=== PATIENT | male | born 1985 | race Caucasian/White ===

== ENCOUNTER → 2020-08-14 14:01 | Outpatient (REF) | payer OTHER, SELFPAY | LOC: HO.SL 14:01 | PROVIDERS: PCP Internal Medicine Geriatric Medicine; Visit Provider Internal Medicine Geriatric Medicine | DX: R06.81 Apnea, not elsewhere classified (principal); R06.83 Snoring; E66.9 Obesity, unspecified | CPT/HCPCS: 95806 ==

== ENCOUNTER 2020-09-17 15:16 | Outpatient (REF) | payer OTHER, SELFPAY | END 2020-09-17 15:17 | disposition home or self-care (01) | LOC: HO.LAB 15:16 | PROVIDERS: PCP Internal Medicine Geriatric Medicine; Visit Provider Internal Medicine | DX: Z20.828 Contact with and (suspected) exposure to other viral communicable diseases (principal) | CPT/HCPCS: C9803; U0003 ==

== ENCOUNTER 2021-04-23 12:20 | Outpatient (REF) | payer MEDICAID, OTHER, SELFPAY ==
--- NOTE | ~2021-04-23 | XR_ITS ---
EXAMINATION: XR CHEST CLINICAL INFORMATION: Dry and productive cough COMPARISON: None TECHNIQUE: 2 views of the chest were obtained. FINDINGS: There is no evidence of acute parenchymal disease, pneumothorax, or pleural effusion. Heart normal size. No evidence of pulmonary edema. XR/XR chest 2V IMPRESSION: No acute disease.
== END 2021-04-23 12:21 | disposition home or self-care (01) ==
LOC: HO.XRAY 12:20
PROVIDERS: PCP Internal Medicine Geriatric Medicine; Visit Provider Nurse Practitioner Family
DX: R05 Cough (principal)
CPT/HCPCS: 71046

== ENCOUNTER 2024-01-06 09:18 | Outpatient (REF) | payer MEDICAID, OTHER, SELFPAY ==
[2024-01-06 12:20] LABS: Alanine Aminotransferase 36 U/L (0-40); Albumin Level 4.2 g/dL (3.5-5.0); Alkaline Phosphatase 104 U/L (39-117); Anion Gap 12 (12-20); Aspartate Amino Transferase 19 U/L (5-37); Bilirubin Total 0.7 mg/dL (0.0-1.0); Blood Urea Nitrogen 11 mg/dL (9-16); Calcium 9.5 mg/dL (8.4-10.2); Carbon Dioxide 25 mmol/L (22-29); Chloride 106 mmol/L (96-108); Cholesterol 240 mg/dL (<200); Estimated Glomerular Filt Rate > 60; Glucose Random 84 mg/dL (60-115); HDL Cholesterol 57 mg/dL (>40); LDL Cholesterol Calculated 157 mg/dL (<100); Potassium 4.1 mmol/L (3.3-5.1); Sodium 139 mmol/L (135-145); Total Protein 7.8 g/dL (6.5-8.0); Triglycerides 130 mg/dL (<150)
== END 2024-01-06 09:19 | disposition home or self-care (01) ==
LOC: HO.HHCL 09:18
PROVIDERS: Visit Provider Internal Medicine Geriatric Medicine
DX: E66.9 Obesity, unspecified (principal)
CPT/HCPCS: 36415; 80053; 80061

== ENCOUNTER 2024-05-19 08:55 | Outpatient (REF) | payer MEDICAID, OTHER, SELFPAY | END 2024-05-19 08:56 | disposition home or self-care (01) | LOC: HO.HHCL 08:55 | PROVIDERS: Visit Provider Internal Medicine Geriatric Medicine | DX: E78.00 Pure hypercholesterolemia, unspecified (principal); E66.9 Obesity, unspecified | CPT/HCPCS: 36415; 80053; 80061 ==

== ENCOUNTER 2024-08-07 13:14 | Outpatient (REF) | payer MEDICAID, OTHER, SELFPAY ==
--- NOTE | ~2024-08-07 | XR_ITS ---
EXAMINATION: X-ray bilateral knees CLINICAL INFORMATION: Bilateral knee pain COMPARISON: None TECHNIQUE: Left knee 4 views. Right knee 4 views. FINDINGS: Left knee: Alignment is anatomic. Joint space is maintained. No visible acute fracture or dislocation. No effusion. No abnormal soft tissue calcification. Right knee: Alignment is anatomic. Joint spaces are maintained. No visible acute fracture or dislocation. No effusion. No abnormal soft tissue calcification. XR/XR knee RT 4V IMPRESSION: No radiographic evidence of acute osseous abnormality. Electronically signed by: Manohar Harp MD 08/07/2024 05:02 PM EDT RP
--- NOTE | ~2024-08-07 | XR_ITS ---
EXAMINATION: X-ray bilateral knees CLINICAL INFORMATION: Bilateral knee pain COMPARISON: None TECHNIQUE: Left knee 4 views. Right knee 4 views. FINDINGS: Left knee: Alignment is anatomic. Joint space is maintained. No visible acute fracture or dislocation. No effusion. No abnormal soft tissue calcification. Right knee: Alignment is anatomic. Joint spaces are maintained. No visible acute fracture or dislocation. No effusion. No abnormal soft tissue calcification. XR/XR knee LT 4V IMPRESSION: No radiographic evidence of acute osseous abnormality. Electronically signed by: Manohar Harp MD 08/07/2024 05:02 PM EDT
[2024-08-07 17:04] LABS: Alanine Aminotransferase 43 U/L (0-40); Albumin Level 4.3 g/dL (3.5-5.0); Alkaline Phosphatase 93 U/L (39-117); Anion Gap 11 (12-20); Aspartate Amino Transferase 27 U/L (5-37); Bilirubin Total 0.5 mg/dL (0.0-1.0); Blood Urea Nitrogen 12 mg/dL (9-16); Calcium 9.5 mg/dL (8.4-10.2); Carbon Dioxide 26 mmol/L (22-29); Chloride 106 mmol/L (96-108); Cholesterol 243 mg/dL (<200); Estimated Glomerular Filt Rate > 60; Glucose Fasting 84 mg/dL (60-99); HDL Cholesterol 56 mg/dL (>40); LDL Cholesterol Calculated 155 mg/dL (<100); Potassium 3.8 mmol/L (3.3-5.1); Sodium 139 mmol/L (135-145); Total Protein 7.6 g/dL (6.5-8.0); Triglycerides 163 mg/dL (<150)
== END 2024-08-07 13:15 | disposition home or self-care (01) ==
LOC: HO.HHCL 13:14
PROVIDERS: Visit Provider Internal Medicine Geriatric Medicine
DX: G89.29 Other chronic pain (principal); M25.562 Pain in left knee; M25.561 Pain in right knee; E66.9 Obesity, unspecified; E78.00 Pure hypercholesterolemia, unspecified
CPT/HCPCS: 36415; 73564; 80053; 80061

== ENCOUNTER 2025-01-09 08:41 | Outpatient (REF) | payer OTHER, SELFPAY ==
--- OUTSIDE RECORDS SUMMARY | 2025-01-09 09:16 | XMS_ITS | Encounter Summary ---
Author Organization [employer] Address [address] [facility] 7 [place] [address] Care Team Providers Care Manufacturing Intern Name Role Phone Name, Jermaien JANE Primary Care Provider [phone] Reason for Visit * Reason Onset Date Comments Appointment Request 07/21/2024 Encounter Details Date Type Department Care Team ([facility] st Contact Info) Description 07/21/2024 Telephone [facility] [address] [place] [address] Name, MD Jermaine [address] [place] [address] Appointment Request Social History Tobacco Use Types Packs/Day Years Used Date Smoking Tobacco: Former Cigarettes Q uit: 2019 Smokeless Tobacco: Never Alcohol Use Standard Drinks/Week Comments Yes 12 (1 standard drink = 0.6 oz pu re alcohol) Depression Answer Date Recorded Patient Health Questionnaire-9 Score 0 01/10/2024 Patient Health Questionnaire-9 Score 0 01/10/2024 Last PHQ-9: Questionnaire Data Not on file 0 01/10/2024 Housing Stability Answer Date Recorded What is your housing situation today? I have karen mccabe 01/10/[address] you li ve. Do you have problems with any of the following? None of the above 01/10/2024 Food Insecurity Answer Date Recorded Within the past 12 months, y ou worried that your food would run out before you got money to buy more: Never True 01/10/2024 Within the past 12 months,th e food you bought just didn't last and you didn't have enough money to get more: Never True Transportation Answer Date Recorded In the past 12 months, has l ack of transportation kept you from medical appts, meetings, work or from getting things needed for daily living? No 01/10/2024 Utilities Answer Date Recorded In the past 12 months, has t he electric, gas, oil or water company threatened to shut off services in your home? No 01/10/2024 Depression Answer Date Recorded Patient Health Questionnaire-2 Score 0 01/10/2024 Sex and Gender Information Value Date Recorded Sex Assigned at Male 08/17/2022 10:30 AM EDT Legal Sex Male 10:30 AM EDT Gender Identity Male 08/17/2022 10:30 AM EDT Sexual Orientation Choose not to disclose 2021 10:30 AM EDT documented as of this encounter Miscellaneous Notes * Telephone Encounter - Costa Ling - 07/21/2024 2:17 PM EDT Tc from patient calling to cancel the appt for 07/21 and and would like a call back to reschedule documented in this encounter Plan of Treatment Upcoming Encounters Date Type Department Care Team (Late st Contact Info) Description 03/13/2025 3:30 PM EDT Office Visit [facility] [address] [place] [id number] Name, MD Jermaine [address] [place] [address] documented as of this encounter Visit Diagnoses Not on filedocumented in this encounter Additional Health Concerns Assessment Noted Time PHQ-9 Depression Total Score: 0 01/10/20 24 3:59 PM EDT documented as of this encounter Care Teams Manufacturing Intern Relationship Specialty Start Date End Date Name, MD Jermaine [address] [place] [id number] PCP - General Family Medicine 10/18/18 documented as of this encounter
--- OUTSIDE RECORDS SUMMARY | 2025-01-09 09:16 | XMS_ITS | Clinical Summary ---
Author Organization [facility] ity Address [address] [place] [address] Care Team Providers Care Peanut Butter Maker Name Role Phone Unavailable Primary Care Provider Unavailabl e Social History Tobacco Use Types Packs/Day Years Used Date Smoking Tobacco: Never Assessed Sex and Gender Information Value Date Recorded Sex Assigned at Not on file Legal Sex Male 2:03 PM EST Gender Identity Not on file Sexual Orientation Not on file Plan of Treatment Health Maintenance Due Date Last Done Comments DTaP,Tdap,and Td Vaccines (1 - Tdap) 2005 Hepatitis B Vaccines (1 of 3 - 19+ 3-dose series) 2005 COVID-19 Vaccine (2023-2 5 season) 2024 Influenza Vaccine (#1) 2024 HIB Vaccines Aged Out No longer eligi ble based on patient's age to complete this topic HPV Vaccines Aged Out No longer eligi ble based on patient's age to complete this topic Hepatitis A Vaccines Aged Out No long er eligible based on patient's age to complete this topic IPV Vaccines Aged Out No longer eligi ble based on patient's age to complete this topic MMR Vaccines Aged Out No longer eligi ble based on patient's age to complete this topic Meningococcal ACWY Vaccine Aged Out N o longer eligible based on patient's age to complete this topic Meningococcal B Vacine Aged Out No lo nger eligible based on patient's age to complete this topic Pneumococcal Vaccine: Pediat rics (0 to 5 Years) and At-Risk Patients (6 to 64 Years) Aged Out No longer eligible b ased on patient's age to complete this topic RSV Immunization Patients Un soniya 20 months Aged Out No longer eligible b ased on patient's age to complete this topic Varicella Vaccines Aged Out No longer eligible based on patient's age to complete this topic
--- OUTSIDE RECORDS SUMMARY | 2025-01-09 09:16 | XMS_ITS | Encounter Summary ---
Author Organization [employer] Address [address] [place] [address] 7 [place] [address] Care Team Providers Care Gravity Prospecting Operator Name Role Phone Name, Jermaine JANE Primary Care Provider [phone] Reason for Visit * Reason Comments Bilateral Ear Irrigation Encounter Details Date Type Department Care Team (Latest Contact Info) Description 12/18/2024 3:30 PM EST Clinical Support [facility] [address] [place] [address] Bela Mesa RN Impacted cerumen of both ears Social History Tobacco Use Types Packs/Day Years [...] AM EDT documented as of this encounter Progress Notes * Bela Mesa RN - 12/18/2024 3:30 PM ESTAssociated Order(s): Ear Cerumen Removal Post-Procedure Diagnose(s): Impacted cerumen of both ears Patient ID: Keyanna Cornell is a 39 y.o. male. Ear Cerumen Removal Date/Time: 12/18/2024 3:30 PM Performed by: Bela Mesa RN Authorized by: Jermaine Marie MD Consent: Consent obtained: Verbal Consent given by: Patient Risks, benefits, and alternatives were discussed: yes Risks discussed: Bleeding, dizziness and incomplete removal Alternatives discussed: No treatment [place] protocol: Patient identity confirmed: Verbally with patient Procedure details: Location: L ear and R ear Procedure type: irrigation Procedure outcomes: cerumen removed Post-procedure details: Inspection: No bleeding and ear canal clear Hearing quality: Improved Procedure completion: Tolerated documented in this encounter Plan of Treatment Upcoming Encounters Date Type Department Care Team (Late st Contact Info) Description 03/13/2025 3:30 PM EDT Office Visit [facility] [address] [place] [address] Name, MD Jermaine [address] [place] [address] documented as of this encounter Procedures Procedure Name Priority Date/Time Associated Diagnosis Comments MT REMOVAL IMPACTED CERUMEN IRRIGATION/LVG UNILAT Routine 12/18/2024 3:30 PM EST Impacted cerumen of both ears documented in this encounter Results * MT REMOVAL IMPACTED CERUMEN IRRIGATION/LVG UNILAT (12/18/2024 3:30 PM EST) Bela Sanders RN - 12/18/2024 3:30 PM EST Bela Mesa RN ? 12/18/2024 ??3:39 PM Ear Cerumen Removal Date/Time: 12/18/2024 3:30 PM Performed by: Bela Mesa RN Authorized by: Jermaine Marie MD ?? Consent: ??Consent obtained: ??Verbal ??Consent given by: ??Patient ??Risks, benefits, and alternatives were discussed: yes ?Risks discussed: ??Bleeding, dizziness and incomplete removal ??Alternatives discussed: ??No treatment [place] protocol: ??Patient identity confirmed: ??Verbally with patient Procedure details: ??Location: ??L ear and R ear ??Procedure type: irrigation ?Procedure outcomes: cerumen removed ?? Post-procedure details: ??Inspection: ??No bleeding and ear canal clear ??Hearing quality: ??Improved ??Procedure completion: ??Tolerated us Jermaine Marie MD IN CLINIC/BEDSIDE ORDERABLES Fin al Result documented in this encounter Visit Diagnoses Diagnosis Impacted cerumen of both ears Impacted cerumen documented in this encounter Additional Health Concerns Assessment Noted Time PHQ-9 Depression Total Score: 0 01/10/20 24 3:59 PM EDT documented as of this encounter Care Teams Gravity Prospecting Operator Relationship Specialty Start Date End Date Name, MD Jermaine [address] [place] [address] PCP - General Family Medicine 10/18/18 documented as of this encounter
--- OUTSIDE RECORDS SUMMARY | 2025-01-09 09:16 | XMS_ITS | Encounter Summary ---
Author Organization [employer] [facility] Address [address] [place] [address] 7 [place] [address] Care Team Providers Care Sod Stripper Name Role Phone Name, Jermaine JANE Primary Care Provider Encounter Details Date Type Department Care Team (Latest Contact Info) Description 10/26/2019 Abstract [facility] Dental, Provider, DDS Social History Tobacco Use Types Packs/Day Years Used Date Smoking Tobacco: Never Assessed Sex and Gender Information Value Date Recorded Sex Assigned at Male 08/17/2022 10:30 AM EDT Legal Sex Male 10:30 AM EDT Gender Identity Male 08/17/2022 10:30 AM EDT Sexual Orientation Choose not to disclose 2021 10:30 AM EDT documented as of this encounter Plan of Treatment Upcoming Encounters Date Type Department Care Team (Late st Contact Info) Description 03/13/2025 3:30 PM EDT Office Visit [facility] [address] [place] [address] NameJermaine MD [address] [place] [address] documented as of this encounter Visit Diagnoses Not on filedocumented in this encounter Care Teams Sod Stripper Relationship Specialty Start Date End Date Jermaine Marie MD [address] [place] [address] PCP - General Family Medicine 10/18/18 documented as of this encounter
--- OUTSIDE RECORDS SUMMARY | 2025-01-09 09:16 | XMS_ITS | Encounter Summary ---
Author Organization [employer] Address [address] [place] [address] 7 [place] [address] Care Team Providers Care Bearing Machine Operator Name Role Phone Name, Jermaine JANE Primary Care Provider [phone] Reason for Visit * Reason Comments Follow-up Encounter Details Date Type Department Care Team ([facility] st Contact Info) Description 12/11/2024 3:30 PM EST Office Visit [facility] [address] [place] [address] Name, MD Jermaine [address] [place] [address] High cholesterol (Primary Dx); Impacted cerumen, unspecified laterality Social History Tobacco Use Types Packs/Day Years Used Date Smoking Tobacco: Former Cigarettes Q uit: 2019 Smokeless Tobacco: Never Tobacco Cessation:Counseling Given: Not Answered Alcohol Use Standard Drinks/Week Comments Yes 12 [...] AM EDT documented as of this encounter Last Filed Vital Signs Vital Sign Reading Time Taken Comments Blood Pressure 128/78 12/11/2024 3:53 PM EST Pulse 98 12/11/2024 3:39 PM EST Temperature 37.2 ??C (98.9 ??F) 12/11/2024 3:39 PM ES T Respiratory Rate 21 12/11/2024 3:39 PM EST Oxygen Saturation 99% 12/11/2024 3:39 PM EST Inhaled Oxygen Concentration - - Weight 92.2 kg (203 lb 3.2 oz) 12/11/2024 3:39 PM EST Height - - Body Mass Index 32.8 08/04/2024 3:55 PM EDT documented in this encounter Progress Notes * Jermaine Marie, - 12/11/2024 3:30 PM EST Subjective Patient ID: Keyanna Cornell is a 39 y.o. male who presents for Follow-up. Patient comes for a follow-up visit. She tells me that he has improved his diet, he is eating more salads, drinking less alcohol. He is interested in rechecking his lipid levels. Today he also complains of bilateral decreased hearing. Ear discomfort. Symptoms have been present for several months. He denies use of Q-tips at home. No fevers or chills. No ear discharge. No vertigo. Review of Systems Constitutional: Negative for chills, fatigue and fever. HENT: Negative for sore throat. See HPI Respiratory: Negative for cough, chest tightness and shortness of breath. Cardiovascular: Negative for chest pain, palpitations and leg swelling. Gastrointestinal: Negative for abdominal pain and blood in stool. Visit Vitals BP 128/78 Pulse 98 Temp 98.9 ??F (37.2 ??C) (Temporal) Resp 21 Wt 203 lb 3.2 oz (92.2 kg) SpO2 99% BMI 32.80 kg/m?? Smoking Status Former BSA 2.07 m?? Objective Physical Exam Constitutional: Appearance: Normal appearance. HENT: Ears: Comments: He has bilateral cerumen impaction on exam Cardiovascular: Rate and Rhythm: Normal rate and regular rhythm. Heart sounds: No murmur heard. Pulmonary: Effort: Pulmonary effort is normal. No respiratory distress. Breath sounds: No wheezing, rhonchi or rales. Abdominal: Palpations: Abdomen is soft. Tenderness: There is no abdominal tenderness. Musculoskeletal: Right lower leg: No edema. Left lower leg: No edema. Neurological: Mental Status: He is alert. Assessment/Plan Diagnoses and all orders for this visit: High cholesterol Comments: He is congratulated on his recent dietary changes. He will come for fasting blood work listed below. He is encouraged to continue to avoid junk food, continue to eat more salads, decrease alcohol consumption, regular physical activity. Orders: - Lipid Panel, Standard; Future Impacted cerumen, unspecified laterality Comments: I prescribed the patient Debrox. I recommended to avoid using Q-tips. I recommend to use Debrox daily and come next week for ear lavage. Other orders - carbamide peroxide (Debrox) 6.5 % otic solution; Administer 5-10 drops into affected ear(s) 2 times daily for 4 days. documented in this encounter Plan of Treatment Upcoming Encounters Date Type Department Care Team (Late st Contact Info) Description 03/13/2025 3:30 PM EDT Office Visit [facility] [address] [place] [address] Jermaine Marie MD [address] [place] [address] Scheduled Orders Name Type Priority Associated Diagnoses Orde r Schedule Lipid Panel, Standard Lab Routine High cholesterol Expected: 12/11/2024 (Approximate), Expires: 12/11/2025 documented as of this encounter Visit Diagnoses Diagnosis High cholesterol- Primary Pure hypercholesterolemia Impacted cerumen, unspecified laterality documented in this encounter Additional Health Concerns Assessment Noted Time PHQ-9 Depression Total Score: 0 01/10/20 24 3:59 PM EDT documented as of this encounter Care Teams Bearing Machine Operator Relationship Specialty Start Date End Date Name, MD Jermaine [address] [place] [address] PCP - General Family Medicine 10/18/18 documented as of this encounter
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
[2025-01-09 12:22] LABS: Cholesterol 200 mg/dL (<200); HDL Cholesterol 51 mg/dL (>40); LDL Cholesterol Calculated 122 mg/dL (<100); Triglycerides 136 mg/dL (<150)
== END 2025-01-09 08:42 | disposition home or self-care (01) ==
LOC: HO.HHCL 08:41
PROVIDERS: Visit Provider Internal Medicine Geriatric Medicine
DX: E78.00 Pure hypercholesterolemia, unspecified (principal)
CPT/HCPCS: 36415; 80061

== ENCOUNTER 2025-01-19 16:28 | Outpatient (REF) | payer OTHER, SELFPAY ==
--- NOTE | ~2025-01-19 | XR_ITS ---
EXAMINATION: XR CHEST 2 VIEWS HISTORY: pain COMPARISON: Comparison is made with the prior examination dated 04/23/2021. FINDINGS: PA and lateral views of the chest are submitted. The lungs are expanded and clear. There is no pleural effusion, pneumothorax, or pulmonary vascular congestion. The heart is normal in size. The bones are intact. XR/XR chest 2V IMPRESSION: No acute cardiopulmonary abnormality. Electronically signed by: Alex Ashford MD 01/22/2025 06:59 AM EDT
--- OUTSIDE RECORDS SUMMARY | 2025-01-19 17:04 | XMS_ITS | Clinical Summary ---
Author Organization [facility] ity Address [address] [place] [address] Care Team Providers Care Handle Finisher Name Role Phone Unavailable Primary Care Provider [...] Vaccine (2023-2 5 season) 2024 Influenza Vaccine (Season Ended) 2025 HIB Vaccines Aged Out No longer eligi [...]
--- OUTSIDE RECORDS SUMMARY | 2025-01-19 17:04 | XMS_ITS | Encounter Summary ---
Author Organization [facility] Address [address] [place] [address] 7 [place] [address] Care Team Providers Care Awning Craftsperson Name Role Phone Name, Jermaine JANE Primary Care Provider [phone] Encounter Details Date Type Department Care Team (Latest Contact Info) Description 10/26/2019 Abstract [facility] CONVERSIONS Dental, Provider, DDS Social History Tobacco [...] Description 03/13/2025 3:30 PM EDT Office Visit [facility] MEDICINE [address] [place] [address] NameJermaine MD [address] [place] [address] documented as of this encounter Visit Diagnoses Not on filedocumented in this encounter Care Teams Awning Craftsperson Relationship Specialty Start Date End Date Jermaine Marie MD [address] [place] [address] PCP - General Family Medicine 10/18/18 documented as of this encounter
--- OUTSIDE RECORDS SUMMARY | 2025-01-19 17:04 | XMS_ITS | Encounter Summary ---
Author Organization [employer] Address [address] [facility] 7t [place] [address] Care Team Providers Care Director Transition Name Role Phone Name, Jermaine JANE Primary Care Provider [phone] Reason for Visit * Reason Comments Chest Pain Shortness of Breath Encounter Details Date Type Department Care Team ([facility] st Contact Info) Description 01/19/2025 4:00 PM EDT Office Visit [facility] [address] [address] Pleurodynia (Primary Dx); Dietary counseling; Exercise counseling; Class 1 obesity without serious comorbidity with body mass index (BMI) of 32.0 to 32.9 in adult, unspecified obesity type; Acute bilateral low back pain with right-sided sciatica Social History Tobacco Use Types Packs/Day Years [...] Sign Reading Time Taken Comments Blood Pressure 122/64 01/19/2025 4:10 PM EDT Pulse 80 01/19/2025 4:10 PM EDT Temperature 37.2 ??C (99 ??F) 01/19/2025 4:10 PM EDT Respiratory Rate 20 01/19/2025 4:10 PM EDT Oxygen Saturation 99% 01/19/2025 4:10 PM EDT Inhaled Oxygen Concentration - - Weight 90.4 kg (199 lb 3.2 oz) 01/19/2025 4:10 P M EDT Height 175.3 cm (5' 9 ) 01/19/2025 4:10 PM EDT Body Mass Index 29.42 01/19/2025 4:10 PM EDT documented in this encounter Plan of Treatment Upcoming Encounters Date Type Department Care Team (Late st Contact Info) Description 03/13/2025 3:30 PM EDT Office Visit [facility] [address] [facility] [place] [address] Name, MD Jermaine [address] [place] [address] Pending Results Name Type Priority Associated Diagnoses Date /Time ECG 12 lead ECG Routine Pleurodynia 01/19/2025 4:35 PM EDT Scheduled Orders Name Type Priority Associated Diagnoses Orde r Schedule XR Chest 2 Views Imaging Routine Pleurodynia Expected: 01/19/2025, Expires: 01/19/2026 D-Dimer, Quantitative Lab STAT Pleurodynia Expected: 01/19/2025 (Approximate), Expires: 01/19/2026 High Sensitivity Troponin I Lab STAT Pleurodynia Expected: 01/19/2025, Expires: 01/19/2026 Comprehensive Metabolic Panel Lab STAT Pleurodynia Expected: 01/19/2025 (Approximate), Expires: 01/19/2026 documented as of this encounter Visit Diagnoses Diagnosis Pleurodynia- Primary Painful respiration Dietary counseling Dietary surveillance and counseling Exercise counseling Class 1 obesity without serious comorbidity with body mass index (BMI) of 32.0 to 32.9 in adult, unspecified obesity type Acute bilateral low back pain with right-sided sciatica documented in this encounter Additional Health Concerns Assessment Noted Time PHQ-9 Depression Total Score: 0 01/10/20 24 3:59 PM EDT documented as of this encounter Care Teams Director Transition Relationship Specialty Start Date End Date Name, MD Jermaine [address] [place] [address] PCP - General Family Medicine 10/18/18 documented as of this encounter
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
--- OUTSIDE RECORDS SUMMARY | 2025-01-19 17:04 | XMS_ITS | Encounter Summary ---
Author Organization [employer] Address [address] [facility] 7 [place] [address] Care Team Providers Care Traffic Analysis Technician Name Role Phone Name, Jermaine JANE Primary Care Provider [phone] Reason for Visit * Reason Onset Date Comments Appointment Request 07/21/2024 Encounter Details Date Type Department Care Team ([facility] st Contact Info) Description 07/21/2024 Telephone [facility] [address] [place] [address] Name, MD Jermaine [address] [place] [address] Appointment Request Social History Tobacco Use Types [...] Description 03/13/2025 3:30 PM EDT Office Visit [facility] [address] [place] [phone] Name, MD Jermaine [address] [place] [address] documented as of this encounter Visit Diagnoses Not on filedocumented in this encounter Additional Health Concerns Assessment Noted Time PHQ-9 Depression Total Score: 0 01/10/20 24 3:59 PM EDT documented as of this encounter Care Teams Traffic Analysis Technician Relationship Specialty Start Date End Date Name, MD Jermaine [address] [place] [address] PCP - General Family Medicine 10/18/18 documented as of this encounter
--- OUTSIDE RECORDS SUMMARY | 2025-01-19 17:04 | XMS_ITS | Encounter Summary ---
Author Organization [employer] Address [address] [facility] 7t [place] [address] Care Team Providers Care Business Economist Name Role Phone Name, Jermaine JANE Primary Care Provider [phone] Reason for Visit * Reason Onset Date Comments [facility] triage 01/19/2025 Encounter Details Date Type Department Care Team ([facility] st Contact Info) Description 01/19/2025 Telephone [facility] [address] [place] [phone] [facility] triage Social History Tobacco Use Types Packs/Day Years [...] encounter Miscellaneous Notes * Telephone Encounter - Norma Syed RN - 01/19/2025 4:17 PM EDT Pt presents to [facility] today with reports of chest pain. Pt is with his daughter Chayo @ [phone]. Daughter will provide Estonian translation. Pt taken for triage in room C. VSS: Weight: 199.2 BP, right arm adult cuff 122/64 Temp PO 99 R/A sat 99% HR reg 86 RR 20, non labored EKG done Pt describes chest pain as: starting at 4 AM today, on/off. No other s/s. Pain is associated strictly with movement, and hard to take a deep breath . Pt works at [employer]. He denies any recent chest injuries or cold symptoms. LS clear. Pt is pain free at this time, except for sitting up or turning toward left side on exam table. EKG and report given to provider. Pt quit smoking about 7 years ago, uses etoh minimally, has 1-2 cups coffee a day, denies other substance uses. Pt sees Dr Marie for PCP, has had elevated cholestrol panel. Pt in NAD, PWD. Awaits provider eval in room C with daughter documented in this encounter Plan of Treatment Upcoming Encounters Date Type Department Care Team (Late st Contact Info) Description 03/13/2025 3:30 PM EDT Office Visit [facility] [address] [place] [address] Name, MD Jremaine [address] [place] [address] documented as of this encounter Visit Diagnoses Not on filedocumented in this encounter Additional Health Concerns Assessment Noted Time PHQ-9 Depression Total Score: 0 01/10/20 24 3:59 PM EDT documented as of this encounter Care Teams Business Economist Relationship Specialty Start Date End Date Name, MD Jermaine [address] [place] [id number] PCP - General Family Medicine 10/18/18 documented as of this encounter
== END 2025-01-19 16:29 | disposition home or self-care (01) ==
LOC: HO.HHCX 16:28
PROVIDERS: Visit Provider General Practice
DX: R07.81 Pleurodynia (principal)
CPT/HCPCS: 71046

== ENCOUNTER → 2025-01-19 16:29 | Outpatient (BNV) | payer OTHER, SELFPAY | PROVIDERS: Visit Provider Radiology Diagnostic Radiology | DX: R07.9 Chest pain, unspecified (principal) | CPT/HCPCS: 71046 ==

== ENCOUNTER 2025-01-19 16:43 | Outpatient (REF) | payer OTHER, SELFPAY ==
[2025-01-19 18:01] LABS: Alanine Aminotransferase 41 U/L (0-40); Albumin Level 4.4 g/dL (3.5-5.0); Alkaline Phosphatase 95 U/L (39-117); Anion Gap 8 (12-20); Aspartate Amino Transferase 22 U/L (5-37); Bilirubin Total 0.6 mg/dL (0.0-1.0); Blood Urea Nitrogen 14 mg/dL (9-16); Calcium 9.4 mg/dL (8.4-10.2); Carbon Dioxide 27 mmol/L (22-29); Chloride 109 mmol/L (96-108); Estimated Glomerular Filt Rate > 60; Glucose Random 84 mg/dL (60-115); Potassium 4.2 mmol/L (3.3-5.1); Sodium 140 mmol/L (135-145); Total Protein 7.6 g/dL (6.5-8.0)
[2025-01-19 18:02] LABS: Troponin-I High Sensitivity < 2.7 ng/L (<3.5-35.0)
== END 2025-01-19 16:44 | disposition home or self-care (01) ==
LOC: HO.HHCL 16:43
PROVIDERS: Visit Provider General Practice
DX: R07.81 Pleurodynia (principal)
CPT/HCPCS: 36415; 71046; 80053; 84484